=== PATIENT | male | born 1980 | race Caucasian/White ===

== ENCOUNTER 2017-09-13 09:20 | Emergency (ER) | payer SELFPAY | END 2017-09-13 10:02 | disposition left against medical advice (07) | LOC: EDUNIT# 09:20 → ER 09:22 | DX: R63.4 Abnormal weight loss (principal); R51 Headache; R53.1 Weakness; R61 Generalized hyperhidrosis ==

== ENCOUNTER → 2023-03-01 | Outpatient (CLI) | payer OTHER ==
[~2023-03-01] MED LIST: GADOTERATE 0.5 MMOL/ML (CLARISCAN) 20 ML VIAL IV ONE
--- NOTE | 2023-03-01 15:28 | Diagnostic Imaging Report ---
PROCEDURE: MRI lumbar spine. TECHNIQUE: Multiplanar, multisequence MRI of the lumbar spine was performed without contrast. INDICATION: Chronic low back pain. Correlation is made with prior MRI of the lumbar spine from 10/08/2014. Curvature and alignment of the lumbar spine is normal. Vertebral body heights are maintained. Marrow signal intensity is unremarkable. No geographic marrow lesion or acute compression fractures identified. There is some very mild disc desiccation at the L4-L5 level compatible with degenerative change. Disc heights are fairly well maintained. Conus is unremarkable at the L1 level. T12-L1: No central canal or neural foraminal stenosis is identified. L1-L2: Central canal neural foramina are widely patent. L2-L3: There are some degenerative changes to the facets. Central canal remains widely patent. Neural foramina appear patent. L3-L4: There are some degenerative facet changes. Central canal and neural foramina appear patent. L4-L5: There are some degenerative facet changes. Broad-based disc/osteophyte complex does flatten the ventral thecal sac. This does result in significant bilateral lateral recess stenosis. There is also moderate bilateral neural foraminal stenosis. No central canal stenosis is identified. L5-S1: Central canal and neural foramina are patent. Paraspinous tissues are unremarkable. IMPRESSION: L4-L5 degenerative disc disease. There is bilateral lateral recess and neural foraminal stenosis. No central canal stenosis is identified. Dictated by: Dictated on workstation # [id number]
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
--- NOTE | 2023-03-01 16:29 | Diagnostic Imaging Report ---
PROCEDURE: MR imaging cervical spine with and without contrast. TECHNIQUE: Multiplanar and multisequence MRI of the cervical spine was performed with and without contrast. INDICATION: Neck pain with left shoulder radiculopathy. COMPARISON: none. FINDINGS: No acute fracture or dislocation is seen in the cervical spine. No abnormal enhancement. There is normal alignment of the cervical spine. The vertebral body heights and disc spaces are well maintained. The bone marrow signal is unremarkable. No focal osseous lesions. The craniocervical junction is maintained. The cervical spinal cord demonstrates normal intrinsic signal. No epidural collections are seen. The included brainstem and posterior fossa have normal appearance. Multilevel degenerative changes are seen in the cervical spine with posterior disc bulges and uncovertebral arthropathy. C2-C3: No significant spinal canal or foraminal stenosis. C3-C4: Posterior disc bulge and uncovertebral arthropathy results in mild spinal canal narrowing and mild to moderate right and mild left foraminal narrowing. C4-C5: Uncovertebral arthropathy results in mild to moderate spinal canal narrowing and mild bilateral foraminal narrowing. C5-C6: Posterior disc bulge and uncovertebral arthropathy results in moderate spinal canal stenosis and moderate right and moderate to severe left foraminal stenosis. C6-C7: Posterior disc bulge and uncovertebral arthropathy results in mild to moderate spinal canal narrowing and mild bilateral foraminal narrowing. C7-T1: No significant spinal canal or foraminal stenosis. The soft tissues of neck are unremarkable. IMPRESSION: 1. No acute fracture or dislocation of the cervical spine. No abnormal enhancement. 2. Multilevel degenerative changes in the cervical spine, greatest at C5-C6. Dictated by: Dictated on workstation # [id number]
== END ==
LOC: RAD 12:43
PROVIDERS: ATTEND Nurse Practitioner
DX: M51.36 Other intervertebral disc degeneration, lumbar region (principal); M48.061 Spinal stenosis, lumbar region without neurogenic claudication; J01.90 Acute sinusitis, unspecified; R29.2 Abnormal reflex
CPT/HCPCS: 70553; 72148; 72156